=== PATIENT | female | born 1945 | race Caucasian/White ===

== ENCOUNTER 2022-09-22 17:19 | Emergency (ER) | payer OTHER ==
[~2022-09-22] VITALS: Ht 167.6 cm; Wt 104.5 kg
[~2022-09-22 17:19] MED LIST: ALBU1.256 NEB; ALBU18HF2 INH; FEXO-310 PO; GABA300C PO; KETO15CR2 TOP; LOSA50TA64 PO; METO-395 PO; NICO-687 TD; ROPI0.5T4 PO
[2022-09-22 17:45] VITALS: BP 117/74
[2022-09-22] MEDS ORDERED: TETanus/Pertussis (Acell)/Diphther VAC/PF (Tdap-Adult) 0.5ml syringe IMVAC ONE (17:50)
[2022-09-22] MEDS ORDERED: LIDOcaine 1% 30ml preserv. free vial IJ ONE (17:50)
[2022-09-22] MEDS ORDERED: LIDOcaine 1% w/EPI 1:100,000 30ml vial (MDV) ONE (17:57)
[2022-09-22] MEDS ORDERED: nicotine 21mg patch - 24 hr TD ONE (19:10)
[2022-09-22] MEDS ORDERED: cephalexin 250mg capsule PO ONE (19:10)
[2022-09-22] MEDS ORDERED: CEPH-585 PO (19:28)
== END 2022-09-22 19:55 | disposition home or self-care (01) ==
LOC: ER 17:20
DX: S61.214A Laceration without foreign body of right ring finger without damage to nail, initial encounter (principal); I10 Essential (primary) hypertension; J45.909 Unspecified asthma, uncomplicated; J44.9 Chronic obstructive pulmonary disease, unspecified; E11.9 Type 2 diabetes mellitus without complications; F03.90 Unspecified dementia, unspecified severity, without behavioral disturbance, psychotic disturbance, mood disturbance, and anxiety; Z85.3 Personal history of malignant neoplasm of breast; Z88.8 Allergy status to other drugs, medicaments and biological substances; Z79.899 Other long term (current) drug therapy; X58.XXXA Exposure to other specified factors, initial encounter; Y93.89 Activity, other specified; Y92.89 Other specified places as the place of occurrence of the external cause; Y99.8 Other external cause status
CPT/HCPCS: 12002; 90471; 90715; 99284; A6222; A6258; A6449; J3490

== ENCOUNTER 2023-08-21 20:47 | Emergency (ER) | payer OTHER ==
[~2023-08-21] VITALS: Ht 165.1 cm; Wt 92.9 kg
[~2023-08-21 20:47] MED LIST changes: +ROPI0.5T37 PO; -ROPI0.5T4 PO
[2023-08-21 21:49] VITALS: TEMP 99
[2023-08-21 22:47] LABS: BILIRUBIN,URINE NEGATIVE (Neg); CLARITY,URINE SLIGHTLY CLOUDY (Clear); COLOR,URINE YELLOW (Yellow); GLUCOSE, URINE NEGATIVE (Neg); KETONES,URINE NEGATIVE (Neg); LEUKOCYTE ESTERASE ,URINE SMALL (Neg); NITRITES, URINE POSITIVE (Neg); OCCULT BLOOD,URINE NEGATIVE (Neg); PROTEIN,URINE NEGATIVE (Neg); UROBILINOGEN,URINE 0.2 E.U/dL (0.2-1.0)
[2023-08-21 22:53] LABS: UA COLLECTION TYPE STRAIGHT CATH
[2023-08-21 23:07] LABS: BACTERIA,URINE 1+ /HPF (Neg); MUCUS STRANDS NONE SEEN /LPF (Neg); RBC,URINE 0-2 /HPF (0-2); SQUAMOUS EPITHELIAL CELL,UR FEW /LPF (FEW)
[2023-08-21 23:08] LABS: WBC CLUMPS,URINE FEW /HPF (NEGATIVE)
[2023-08-21 23:14] LABS: ALANINE AMINOTRANSFERASE 19 U/L (12-78); ALBUMIN 2.8 G/DL (3.4-5.0); ALBUMIN/GLOBULIN RATIO 0.7 (1.1-1.5); ALKALINE PHOSPHATASE 132 IU/L (46-116); ANION GAP 6 (8-16); ASPARTATE AMINO TRANSFERASE 23 U/L (10-37); BILIRUBIN,TOTAL 0.4 MG/DL (0.1-1.0); BLOOD UREA NITROGEN 17 MG/DL (7-18); BUN/CREATININE RATIO 22.1 (10.0-20.0); CALCIUM 9.4 MG/DL (8.5-10.1); CHLORIDE 100 MMOL/L (99-107); CREATININE 0.77 MG/DL (0.40-0.90); GLUCOSE 107 MG/DL (70-104); POTASSIUM 4.1 MMOL/L (3.5-5.1); SODIUM 135 MMOL/L (135-145); TOTAL CARBON DIOXIDE 29.3 MMOL/L (24-32); TOTAL PROTEIN 7.1 G/DL (6.4-8.2); eCRCL 54 ML/MIN; eGFR 73 ML/MIN
[2023-08-21 23:19] LABS: BASOPHILS # (AUTO) 0.1 X10'3 (0-0.2); EOSINOPHILS # (AUTO) 0.3 X10'3 (0-0.9); EOSINOPHILS % (AUTO) 3.8 % (0-6); HEMATOCRIT 42.6 % (35.0-45.0); HEMOGLOBIN 13.9 g/dl (12.0-16.0); LYMPHOCYTES # (AUTO) 1.7 X10'3 (1.1-4.8); LYMPHOCYTES % (AUTO) 20.8 % (21-51); MEAN CORPUSCULAR HGB CONC 32.6 g/dL (33.0-36.5); MEAN CORPUSCULAR VOLUME 85.8 FL (78-98); MEAN PLATELET VOLUME 9.3 FL (7.4-10.4); MONOCYTES # (AUTO) 0.9 X10'3 (0-0.9); MONOCYTES % (AUTO) 10.7 % (2-12); NEUTROPHILS # (AUTO) 5.3 X10'3 (1.8-7.7); NEUTROPHILS % (AUTO) 63.7 % (42-75); PLATELET COUNT 344 X10'3 (140-440); RED BLOOD COUNT 4.96 X10'6 (4.20-5.60); RED CELL DISTRIBUTION WIDTH 16.5 % (11.5-14.5); WHITE BLOOD COUNT 8.3 X10'3 (4.5-11.0)
[2023-08-22] MEDS ORDERED: CEPH250T PO (00:04)
[2023-08-22] MEDS ORDERED: cephalexin 250mg capsule PO ONE (00:05)
--- NOTE | 2023-08-22 06:49 | NUR ---
PT DC 5 HOURS AGO. AWAITING RIDE BACK TO [facility]
--- NOTE | 2023-08-22 08:05 | NUR ---
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
[2023-08-22 08:37] VITALS: BP 105/54; PULSE 70; RESP 15; O2SAT 92
== END 2023-08-22 10:30 | disposition home or self-care (01) ==
LOC: ER 20:48
DX: N39.0 Urinary tract infection, site not specified (principal); I10 Essential (primary) hypertension; J44.9 Chronic obstructive pulmonary disease, unspecified; E11.9 Type 2 diabetes mellitus without complications; Z88.8 Allergy status to other drugs, medicaments and biological substances; Z88.6 Allergy status to analgesic agent; Z79.899 Other long term (current) drug therapy
CPT/HCPCS: 36415; 80053; 81001; 82948; 85025; 87088; 99285; C1758